=== PATIENT | male | born 1960 | race Caucasian/White ===

== ENCOUNTER 2019-06-03 07:21 | Observation (INO) | payer OTHER ==
[2019-06-03] MEDS ORDERED: FENTANYL CITR 100 MCG/2 ML ONE (07:26)
[2019-06-03] MEDS ORDERED: ONDANSETRON 4 MG/2 ML VIAL ONE (07:26)
[2019-06-03] MEDS ORDERED: NA CHLORIDE 0.9% 1,000 ML ONE ×2 (07:27→09:37)
[2019-06-03 07:48] LABS: Absolute Lymphocytes (CBC) 1.7 K/uL (0.7-4.9); Basophils % 0.5 % (0-1.3); Hematocrit 47.5 % (39.6-49.0); Lymphocytes % 16.2 % (15.3-44.8); MPV 10.6 fL (7.6-11.3); RBC Red Blood Cell Count 5.17 M/uL (4.33-5.43)
[2019-06-03 08:05] LABS: Potassium 3.8 mmol/L (3.5-5.1)
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
[2019-06-03] MEDS ORDERED: TETANUS & DIPHTHERIA TOX,ADULT 0.5 ML VIAL ONE (08:12)
[2019-06-03] MEDS ORDERED: MORPHINE 4 MG/ML SYR ONE ×2 (08:21→11:38)
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
[2019-06-03] MEDS: TRAMADOL HCL 50 MG TAB PO PRN ×2 (12:41→19:23)
[2019-06-03 12:53] VITALS: BMI 42.3
[2019-06-03] MEDS ORDERED: POTASSIUM CL SA 10 MEQ TAB PO ONE (14:00)
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
[2019-06-03 15:49] LABS: Urine Appearance CLEAR; Urine Bilirubin NEGATIVE (NEG); Urine Blood NEGATIVE (NEG); Urine Color DK YELLOW; Urine Glucose NEGATIVE (NEG); Urine Protein NEGATIVE (NEG); Urine Specific Gravity >=1.030 (1.005-1.030)
[2019-06-03 16:07] LABS: Urine Microscopic Reflex NO UMIC
[2019-06-04] MEDS: MORPHINE 4 MG/ML SYR IV PRN (05:04)
[2019-06-04 05:32] LABS: Absolute Lymphocytes (CBC) 1.3 K/uL (0.7-4.9); Basophils % 0.5 % (0-1.3); Lymphocytes % 14.4 % (15.3-44.8); MPV 10.4 fL (7.6-11.3); RBC Red Blood Cell Count 4.84 M/uL (4.33-5.43)
[2019-06-04 05:56] LABS: ALT/SGPT 41 U/L (12-78); AST/SGOT 39 U/L (15-37); Albumin 3.3 g/dL (3.4-5.0); Alkaline Phosphatase 48 U/L (45-117); BUN Blood Urea Nitrogen 14 mg/dL (7-18); Bicarbonate 27 mmol/L (21-32); Bilirubin Total 1.1 mg/dL (0.2-1.0); Glucose Level 107 mg/dL (74-106); Magnesium 2.2 mg/dL (1.8-2.4); Phosphorus 3.1 mg/dL (2.5-4.9); Potassium 4.8 mmol/L (3.5-5.1); Protein, Total 7.2 g/dL (6.4-8.2); Sodium Level 139 mmol/L (136-145)
[2019-06-04] MEDS: TRAMADOL HCL 50 MG TAB PO PRN ×2 (09:27→16:42)
[2019-06-04] MEDS: LIDOCAINE 5% PATCH TOP SCH (10:41)
[2019-06-04] MEDS: DOCUSATE NA 100 MG CAP PO SCH ×2 (10:41→20:51)
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
[2019-06-05] MEDS: MORPHINE 4 MG/ML SYR IV PRN (00:04)
[2019-06-05] MEDS: ONDANSETRON 4 MG/2 ML VIAL IV PRN ×2 (00:04→06:00)
[2019-06-05 01:21] VITALS: BP 134/81; TEMP 98.7
[2019-06-05 05:43] LABS: Absolute Lymphocytes (CBC) 0.6 K/uL (0.7-4.9); Basophils % 0.2 % (0-1.3); Hematocrit 43.8 % (39.6-49.0); Lymphocytes % 5.8 % (15.3-44.8); MPV 10.6 fL (7.6-11.3)
[2019-06-05 05:58] LABS: ALT/SGPT 40 U/L (12-78); AST/SGOT 32 U/L (15-37); Albumin 3.5 g/dL (3.4-5.0); Alkaline Phosphatase 53 U/L (45-117); BUN Blood Urea Nitrogen 13 mg/dL (7-18); Bicarbonate 27 mmol/L (21-32); Glucose Level 131 mg/dL (74-106); Protein, Total 7.5 g/dL (6.4-8.2); Sodium Level 136 mmol/L (136-145)
[2019-06-05 06:52] LABS: Blood Morphology Comment NOT SEEN (NOT SEEN); Platelet Estimate ADEQ; Urine White Blood Cell Casts OK
[2019-06-05 09:15] VITALS: O2SAT 92
[2019-06-05] MEDS: LIDOCAINE 5% PATCH TOP SCH (09:59)
[2019-06-05] MEDS: DOCUSATE NA 100 MG CAP PO SCH (09:59)
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
== END 2019-06-05 11:32 | disposition home or self-care (01) ==
LOC: ER 07:21 → ERHOLD 09:35 → 2ND 11:35
PROVIDERS: ADMIT Family Medicine; ATTEND Family Medicine
DX: S22.42XA Multiple fractures of ribs, left side, initial encounter for closed fracture (principal); V86.11XA Passenger of ambulance or fire engine injured in traffic accident, initial encounter; E66.9 Obesity, unspecified; Z68.41 Body mass index [BMI] 40.0-44.9, adult; Z23 Encounter for immunization
CPT/HCPCS: 96361; 85025 ×3; 80048; 36415 ×2; 86900; 83735; 86850; 84100; 86901; 81003; 80053 ×2; 70450; 72125; 71260; 74177; 71045; 90471; 90714; 97110; 97116 ×2; 97161; 97166; 97530 ×2; 94760 ×5; 96375; 96374; 99285; Q9967; J3010; J7030 ×2; J2405 ×3; G0378 ×4